=== PATIENT | male | born 1990 | race African-American/Black ===

== ENCOUNTER 2017-09-24 19:57 | Emergency (ER) | payer MEDICAID | END 2017-09-24 23:50 | disposition left against medical advice (07) | LOC: ER 22:44 | DX: J00 Acute nasopharyngitis [common cold] (principal); Z53.21 Procedure and treatment not carried out due to patient leaving prior to being seen by health care provider ==

== ENCOUNTER 2017-09-25 07:28 | Emergency (ER) | payer MEDICAID ==
[~2017-09-25] VITALS: Ht 182.9 cm; Wt 96.0 kg
[2017-09-25 11:08] VITALS: BP 138/82
== END 2017-09-25 11:09 | disposition home or self-care (01) ==
LOC: ER 09:06
DX: R51 Headache (principal); J32.9 Chronic sinusitis, unspecified; F12.10 Cannabis abuse, uncomplicated
CPT/HCPCS: 99283; Z7610

== ENCOUNTER 2019-06-08 11:40 | Emergency (ER) | payer MEDICAID ==
[~2019-06-08] VITALS: Ht 180.3 cm; Wt 100.0 kg
[2019-06-08 11:44] VITALS: BP 122/80
== END 2019-06-08 12:12 | disposition home or self-care (01) ==
LOC: ER 11:40
DX: J98.8 Other specified respiratory disorders (principal); F12.10 Cannabis abuse, uncomplicated
CPT/HCPCS: 99283

== ENCOUNTER 2021-02-06 15:18 | Emergency (ER) | payer MEDICAID ==
[~2021-02-06] VITALS: Ht 188 cm; Wt 98.0 kg
[2021-02-06] MEDS ORDERED: ONDANSETRON HCL 4MG/2ML INJ IV STA (17:08)
[2021-02-06] MEDS ORDERED: SODIUM CHLORIDE 0.9% 1,000 ML IV ONE (17:15)
[2021-02-06 20:29] VITALS: BP 115/72
[2021-02-06 20:30] LABS: EOSINOPHILS % 1.5 % (0.0-5.0); HEMATOCRIT. 42.2 % (42.0-52.0); HEMOGLOBIN. 13.9 g/dL (14.0-18.0); MEAN CORPUSCULAR HEMOGLOBIN 27.6 pg (28.0-32.0); MEAN CORPUSCULAR VOLUME 83.5 fL (80.0-94.0); MEAN PLATELET VOLUME 8.7 fl (7.4-10.4); MONOCYTES % 5.7 % (2.0-8.0); NEUTROPHILS % 74.8 % (40.0-76.0); PLATELET 238 x1000/uL (130-400); RED BLOOD CELL COUNT 5.05 mill/uL (4.7-6.1); RED CELL DISTRIBUTION WIDTH 15.1 % (11.6-14.6)
[2021-02-06 20:33] LABS: CHLORIDE 106 mEq/L (98-107)
[2021-02-06 20:38] LABS: CLARITY URINE CLEAR (CLEAR); COLOR URINE YELLOW (YELLOW); KETONES URINE NEGATIVE (NEGATIVE); LEUKOCYTE ESTERASE URINE NEGATIVE (NEGATIVE); NITRITE URINE NEGATIVE (NEGATIVE); OCCULT BLOOD URINE NEGATIVE (NEGATIVE); PH URINE 6.5 (4.5-8.0); PROTEIN URINE 1+ (NEGATIVE); SPECIFIC GRAVITY URINE 1.029 (1.005-1.030); UROBILINOGEN URINE 0.2 E.U./dL (0.2-1.0)
== END 2021-02-06 21:19 | disposition home or self-care (01) ==
LOC: ER 15:18
DX: R11.2 Nausea with vomiting, unspecified (principal); F12.10 Cannabis abuse, uncomplicated; Z20.822 Contact with and (suspected) exposure to COVID-19
CPT/HCPCS: 36415; 71045; 80053; 81003; 85025; 93005; 96361; 96374; 99285; C9803; J2405; J7030; U0003; U0005